=== PATIENT | female | born 1940 | race Caucasian/White ===

== ENCOUNTER 2018-04-25 08:52 | Outpatient (CLI) | payer MEDICARE, BC | END 2018-04-25 08:53 | disposition home or self-care (01) | LOC: BICMAMMO 08:52 | PROVIDERS: ATTEND Internal Medicine | DX: Z12.31 Encounter for screening mammogram for malignant neoplasm of breast (principal); N63.20 Unspecified lump in the left breast, unspecified quadrant | CPT/HCPCS: 77063; 77067 ==

== ENCOUNTER 2018-05-04 08:47 | Outpatient (CLI) | payer MEDICARE, BC ==
--- NOTE | 2018-05-04 11:17 | ULT ---
LEFT BREAST ULTRASOUND: HISTORY: Abnormal mammogram. CORRELATION: Mammograms from 04/25/2018 and today. FINDINGS: Sonographic evaluation of the left anterior breast demonstrates a 5 mm cyst at the 2 o'clock position , corresponding to the mammographic finding. IMPRESSION: BI-RADS category 2-Benign findings. Return to annual mammographic screening. POS: OFF
== END 2018-05-04 08:48 | disposition home or self-care (01) ==
LOC: BICMAMMO 08:47
PROVIDERS: ATTEND Internal Medicine
DX: N63.20 Unspecified lump in the left breast, unspecified quadrant (principal)
CPT/HCPCS: 76642; 77065; G0279

== ENCOUNTER 2018-07-03 12:09 | Emergency (ER) | payer MEDICARE, BC ==
[2018-07-03] MEDS ORDERED: Metoclopramide HCl 10 MG/2 ML VIAL ONE (13:01)
[2018-07-03] MEDS ORDERED: diphenhydrAMINE 50 MG/ML VIAL ONE (13:01)
[2018-07-03] MEDS ORDERED: Acetaminophen 500 MG TAB ONE (13:01)
[2018-07-03 13:19] LABS: Mean Corpuscular HGB CONC 31.7 g/dL (32.0-36.0); Mean Corpuscular Hemoglobin 29.9 pg (27.0-31.0); Mean Corpuscular Volume 94.3 fL (78.0-98.0); Mean Platelet Volume 8.8 fL (7.4-10.4); Platelet Count 254 thou/uL (130-400); RBC Distribution Width 13.8 % (11.5-14.5); Red Blood Cell (RBC) Count 4.68 mill/uL (4.20-5.40)
[2018-07-03 13:35] LABS: Anion Gap 17 mmol/L (10-20); BUN (Urea Nitrogen) 10 mg/dL (9.8-20.1); Calc. Creatinine Clearance 0 mL/min (70-130); Calcium 9.6 mg/dL (7.8-10.44); Carbon Dioxide 23 mmol/L (23-31); Chloride 104 mmol/L (98-107); Estimated GFR-MDRD 64; Glucose 94 mg/dL (83-110); Sodium 140 mmol/L (136-145)
[2018-07-03 13:39] LABS: Band 11 % (5-11); Eosinophils 2 % (0-10); Lymphocytes 4 % (21-51); MDiff Complete? YES; Monocytes 4 % (0-10); Neutrophil 79 % (42-75); Platelet Morphology Comment Appears Adequate
--- NOTE | 2018-07-03 15:31 | CT ---
HEAD CT NONCONTRAST: Date 07/03/18 INDICATION: Persistent headache, localized to frontal region. FINDINGS: There is no acute intracranial hemorrhage, mass effect, or midline shift. Ventricular system is mildl y prominent and may be due to a slight degree of generalized parenchymal volume loss. There is mild c hronic ischemic disease of the cerebral white matter. There is diffuse opacification of the right eth moid and maxillary sinuses. Frontal ethmoidal recess is also opacified. IMPRESSION: 1. No acute intracranial hemorrhage or mass effect. 2. Prominent right side paranasal sinus opacification, involving ethmoid and right maxillary sinus. This could correlate to patient's frontal headaches. Correlate clinically. 3. Mild chronic microvascular ischemic disease. POS: [facility]
== END 2018-07-03 15:15 | disposition home or self-care (01) ==
LOC: ERS 12:09
DX: J01.90 Acute sinusitis, unspecified (principal); E03.9 Hypothyroidism, unspecified; E78.5 Hyperlipidemia, unspecified; I10 Essential (primary) hypertension; Z79.899 Other long term (current) drug therapy
CPT/HCPCS: 70450; 80048; 85025; 85652; 86140; 96365; 96366; 96375; J1200; J2765

== ENCOUNTER 2018-07-13 09:51 | Emergency (ER) | payer MEDICARE, BC ==
[2018-07-13] MEDS ORDERED: Pantoprazole 40 MG VIAL ONE (11:21)
[2018-07-13] MEDS ORDERED: Ondansetron PF 4 MG/2 ML Vial ONE (11:21)
[2018-07-13] MEDS ORDERED: Dicyclomine 20 MG TAB ONE (11:21)
[2018-07-13 11:57] LABS: #Basophils 0.1 thou/uL (0.0-0.2); #Lymphocytes 1.5 thou/uL (1.20-3.40); #Monocytes 0.8 thou/uL (0.11-0.59); #Neutrophils 4.3 thou/uL (1.40-6.50); %Basophils 0.8 % (0.0-1.0); %Eosinophils 0.4 % (0.0-10.0); %Lymphocytes 22.3 % (21.0-51.0); %Monocytes 12.4 % (0.0-10.0); %Neutrophils 64.2 % (42.0-75.0); Hemoglobin 15.3 g/dL (12.0-16.0); Mean Corpuscular HGB CONC 32.3 g/dL (32.0-36.0); Mean Corpuscular Hemoglobin 29.2 pg (27.0-31.0); Mean Corpuscular Volume 90.3 fL (78.0-98.0); Mean Platelet Volume 9.4 fL (7.4-10.4); Platelet Count 297 thou/uL (130-400); RBC Distribution Width 13.9 % (11.5-14.5); Red Blood Cell (RBC) Count 5.24 mill/uL (4.20-5.40); White Blood Cell (WBC) Count 6.8 thou/uL (4.8-10.8)
[2018-07-13 12:29] LABS: ALT (SGPT) 21 U/L (8-55); AST (SGOT) 34 U/L (5-34); Albumin 3.7 g/dL (3.4-4.8); Alkaline Phosphatase 110 U/L (40-150); Anion Gap 18 mmol/L (10-20); BUN (Urea Nitrogen) 24 mg/dL (9.8-20.1); Bilirubin, Total 0.3 mg/dL (0.2-1.2); Calc. Creatinine Clearance 0 mL/min (70-130); Calcium 9.7 mg/dL (7.8-10.44); Carbon Dioxide 27 mmol/L (23-31); Chloride 101 mmol/L (98-107); Estimated GFR-MDRD 36; Globulin 4.1 g/dL (2.4-3.5); Glucose 100 mg/dL (83-110); Potassium 4.2 mmol/L (3.5-5.1); Protein, Total 7.8 g/dL (6.0-8.3); Sodium 142 mmol/L (136-145)
== END 2018-07-13 13:00 ==
LOC: ERS 09:51
DX: J10.1 Influenza due to other identified influenza virus with other respiratory manifestations (principal); E03.9 Hypothyroidism, unspecified; E78.5 Hyperlipidemia, unspecified; I10 Essential (primary) hypertension; Z87.891 Personal history of nicotine dependence; Z79.899 Other long term (current) drug therapy
CPT/HCPCS: 80053; 84484; 85025; 87804; 96361; 96374; 96375; C9113; J2405

== ENCOUNTER 2022-12-22 09:15 | Outpatient (CLI) | payer MEDICARE, BC | END 2022-12-22 09:16 | disposition home or self-care (01) | LOC: BICMRI 09:15 | PROVIDERS: ATTEND Anesthesiology Pain Medicine | DX: M54.12 Radiculopathy, cervical region (principal); M50.121 Cervical disc disorder at C4-C5 level with radiculopathy; M50.123 Cervical disc disorder at C6-C7 level with radiculopathy; R60.9 Edema, unspecified; M50.122 Cervical disc disorder at C5-C6 level with radiculopathy | CPT/HCPCS: 72141 ==

== ENCOUNTER 2023-03-14 08:07 | Emergency (ER) | payer MEDICARE, BC | END 2023-03-14 13:01 | disposition home or self-care (01) | LOC: ERS 08:07 | DX: S70.01XA Contusion of right hip, initial encounter (principal); I10 Essential (primary) hypertension; E78.5 Hyperlipidemia, unspecified; E03.9 Hypothyroidism, unspecified; Z87.891 Personal history of nicotine dependence; W18.30XA Fall on same level, unspecified, initial encounter ==